=== PATIENT | female | born 1975 ===

== ENCOUNTER 2020-12-08 05:28 | Emergency (ER) | payer BC, OTHER ==
[2020-12-08] MEDS ORDERED: FAMOTIDINE 20MG/2ML IV (PEPCID) IV STA (05:54)
[2020-12-08] MEDS ORDERED: ANTACID SUSP 30 ML UDC (MYLANTA) PO ONE (06:00)
[2020-12-08] MEDS ORDERED: ONDANSETRON 4 MG/2 ML (SDV) Z0FRAN IVP ONE ×2 (06:00→11:15)
[2020-12-08] MEDS ORDERED: LACTATED RINGERS 1,000 ML IV ONE (06:00)
[2020-12-08] MEDS ORDERED: LIDOCAINE 2% VISCOUS 15 ML UDC PO ONE (06:00)
[2020-12-08 06:01] LABS: BASOPHILS % (AUTO) 0 % (0-10); EOSINOPHILS # (AUTO) 0.2 10^3/uL (0.0-0.3); EOSINOPHILS % (AUTO) 1 % (0-10); HEMATOCRIT 40 % (35-52); HEMOGLOBIN 14.7 g/dL (11.5-16.0); LYMPHOCYTES % (AUTO) 14 % (12-44); MEAN CORPUSCULAR HEMOGLOBIN 31 pg (25-34); MEAN CORPUSCULAR HGB CONC 36 g/dL (32-36); MEAN CORPUSCULAR VOLUME 85 fL (80-99); MEAN PLATELET VOLUME 11.3 fL (9.0-12.2); MONOCYTES # (AUTO) 0.5 10^3/uL (0.0-1.0); MONOCYTES % (AUTO) 4 % (0-12); NEUTROPHILS # (AUTO) 11.8 10^3/uL (1.8-7.8); NEUTROPHILS % (AUTO) 81 % (42-75); PLATELET COUNT 254 10^3/uL (130-400); WHITE BLOOD COUNT 14.6 10^3/uL (4.3-11.0)
--- NOTE | 2020-12-08 06:01 | ED Abdominal Pain ---
General Chief Complaint: Abdominal/GI Problems Stated Complaint: UPPER ABD PAIN Source of Information: Patient Exam Limitations: No Limitations (RASHARD LEPE) History of Present Illness Date Seen by Provider: Dec 08, 2020 Time Seen by Provider: 05:40 Initial Comments Patient to the ER by private conveyance with her significant other and chief complaint epigastric abdominal pain has been going on off and on for the past couple months. She says this last episode started last night shortly after eating dinner and has waxed and waned. She rates it as a 10 out of 10 presently . Not worse with movement. She is having nausea but no vomiting. No diarrhea or constipation. No fevers chills or sick contacts. No history of abdominal surgeries or EGD/colonoscopy. She went to [facility] a month ago and they gave her a medicine but she is not sure what it was or what it was for. She did take it today and states that it did not help her at all. She has not had any work-up including labs, ultrasound etc. (RASHARD LEPE) Allergies and Home Medications Allergies Coded Allergies: No Known Drug Allergies (Unverified , 12/08/20) Patient Home Medication List Home Medication List Reviewed: Yes (RASHARD LEPE) Review of Systems Review of Systems Constitutional: No chills, No fever EENTM: No Blurred Vision, No Double Vision Respiratory: Denies Cough, Denies Orthopnea Cardiovascular: Denies Chest Pain, Denies Edema Gastrointestinal: Abdominal Pain, Nausea, Vomiting Genitourinary: Denies Burning, Denies Discharge, Denies Drainage Musculoskeletal: No back pain, No joint pain Psychiatric/Neurological: Denies Anxiety, Denies Depressed (RASHARD LEPE) All Other Systems Reviewed Negative Unless Noted: Yes (RASHARD LEPE) Past Jtjfpch-Bileyk-Qmankd Hx Patient Social History Tobacco Use?: No Use of E-Cig and/or Vaping dev: No Substance use?: No Alcohol Use?: No (RASHARD LEPE) Physical Exam Vital Signs Vital Signs - First Documented 12/08/20 05:44 Temp 36.0 Pulse 68 Resp 16 B/P (MAP) 136/77 (96) Pulse Ox 100 O2 Delivery Room Air (MAYRA JOSE MD) Vital Signs Capillary Refill : (RASHARD LEPE) Height/Weight/BMI Height: '" Weight: lbs. oz. kg; BMI Method: General Appearance: WD/WN, mild distress HEENT: PERRL/EOMI, pharynx normal Neck: full range of motion, normal inspection Respiratory: lungs clear, normal breath sounds, no respiratory distress, no accessory muscle use Cardiovascular: normal peripheral pulses, regular rate, rhythm Peripheral Pulses: 2+ Radial Pulses (R), 2+ Radial Pulses (L) Gastrointestinal: normal bowel sounds, soft, tenderness (Epigastric and periumb ilical this), other (Negative for Newman's) Extremities: normal inspection, no pedal edema, normal capillary refill Back: normal inspection, no vertebral tenderness Neurologic/Psychiatric: alert, normal mood/affect, oriented x 3 Skin: normal color, warm/dry (SHERLEY,RASHARD J) Progress/Results/Core Measures Results/Orders Lab Results Laboratory Tests Test 12/08/20 05:54 12/08/20 06:00 12/08/20 10:08 Range/Units White Blood Count 14.6 H 4.3-11.0 10^3/uL Red Blood Count 4.77 3.80-5.11 10^6/uL Hemoglobin 14.7 11.5-16.0 g/dL Hematocrit 40 35-52 % Mean Corpuscular Volume 85 80-99 fL Mean Corpuscular Hemoglobin 31 25-34 pg Mean Corpuscular Hemoglobin Concent 36 32-36 g/dL Red Cell Distribution Width 12.5 10.0-14.5 % Platelet Count 254 130-400 10^3/uL Mean Platelet Volume 11.3 9.0-12.2 fL Immature Granulocyte % (Auto) 1 % Neutrophils (%) (Auto) 81 H 42-75 % Lymphocytes (%) (Auto) 14 12-44 % Monocytes (%) (Auto) 4 0-12 % Eosinophils (%) (Auto) 1 0-10 % Basophils (%) (Auto) 0 0-10 % Neutrophils # (Auto) 11.8 H 1.8-7.8 10^3/uL Lymphocytes # (Auto) 2.0 1.0-4.0 10^3/uL Monocytes # (Auto) 0.5 0.0-1.0 10^3/uL Eosinophils # (Auto) 0.2 0.0-0.3 10^3/uL Basophils # (Auto) 0.0 0.0-0.1 10^3/uL Immature Granulocyte # (Auto) 0.1 0.0-0.1 10^3/uL Neutrophils % (Manual) 83 % Lymphocytes % (Manual) 13 % Monocytes % (Manual) 4 % Sodium Level 133 L 135-145 MMOL/L Potassium Level 3.7 3.6-5.0 MMOL/L Chloride Level 102 98-107 MMOL/L Carbon Dioxide Level 20 L 21-32 MMOL/L Anion Gap 11 5-14 MMOL/L Blood Urea Nitrogen 15 7-18 MG/DL Creatinine 0.83 0.60-1.30 MG/DL Estimat Glomerular Filtration Rate 75 BUN/Creatinine Ratio 18 Glucose Level 249 H 70-105 MG/DL Calcium Level 9.6 8.5-10.1 MG/DL Corrected Calcium 9.5 8.5-10.1 MG/DL Total Bilirubin 3.1 H 0.1-1.0 MG/DL Aspartate Amino Transf (AST/SGOT) 298 H 5-34 U/L Alanine Aminotransferase (ALT/SGPT) 281 H 0-55 U/L Alkaline Phosphatase 412 H 40-136 U/L C-Reactive Protein High Sensitivity 0.41 0.00-0.50 MG/DL Total Protein 8.4 H 6.4-8.2 GM/DL Albumin 4.1 3.2-4.5 GM/DL Lipase 20994 H 8-78 U/L Urine Color DARK YELLOW Urine Clarity SL CLOUDY Urine pH 7.0 5-9 Urine Specific [place] 1.020 1.016-1.022 Urine Protein TRACE H NEGATIVE Urine Glucose (UA) 2+ H NEGATIVE Urine Ketones 3+ H NEGATIVE Urine Nitrite NEGATIVE NEGATIVE Urine Bilirubin 1+ H NEGATIVE Urine Urobilinogen >=8.0 < = 1.0 MG/DL Urine Leukocyte Esterase NEGATIVE NEGATIVE Urine RBC (Auto) NEGATIVE NEGATIVE Urine RBC 0-2 /HPF Urine WBC 0-2 /HPF Urine Squamous Epithelial Cells 2-5 /HPF Urine Crystals NONE /LPF Urine Bacteria TRACE /HPF Urine Casts NONE /LPF Urine Mucus SMALL H /LPF Urine Culture Indicated NO SARS-CoV-2 RNA (RT-PCR) Not Detected Not Detecte (MAYRA JOSE MD) My Orders Orders - MAYRA JOSE MD Fentanyl Inj (Sublimaze Injection) (12/08/20 06:09) Pantoprazole Injection (Protonix Injecti (12/08/20 06:15) Fentanyl Inj (Sublimaze Injection) (12/08/20 06:11) Ct Abdomen/Pelvis W (12/08/20 07:22) Lactated Ringers (Lr 1000 Ml Iv Solution (12/08/20 07:23) Promethazine Injection (Phenergan Injec (12/08/20 07:32) Promethazine Injection (Phenergan Injec (12/08/20 07:32) Iohexol Injection (Omnipaque 350 Mg/Ml 1 (12/08/20 07:45) Received Contrast (Hold Metformin- Contr (12/08/20 07:45) Sodium Chloride Flush (Catheter Flush Sy (12/08/20 07:45) Ns (Ivpb) (Sodium Chloride 0.9% Ivpb Bag (12/08/20 07:45) Us Gallbladder 88088 (12/08/20 08:00) Fentanyl Inj (Sublimaze Injection) (12/08/20 08:30) Fentanyl Inj (Sublimaze Injection) (12/08/20 08:34) Covid 19 Inhouse Test (12/08/20 09:41) Promethazine Injection (Phenergan Injec (12/08/20 09:46) Fentanyl Inj (Sublimaze Injection) (12/08/20 09:46) Piperacillin Sodium/Tazobactam (Zosyn Vi (12/08/20 10:15) Hydromorphone Injection (Dilaudid Inject (12/08/20 11:15) Ondansetron Injection (Zofran Injectio (12/08/20 11:15) (MAYRA JOSE MD) Medications Given in ED Current Medications Medications Dose Ordered Sig/Soila Route Start Time Stop Time Status Last Admin Dose Admin Hydromorphone HCl 0.5 mg ONCE ONCE IV 12/08/20 11:15 12/08/20 11:16 DC 12/08/20 11:16 0.5 MG Iohexol 100 ml ONCE ONCE IV 12/08/20 07:45 12/08/20 07:46 DC 12/08/20 07:47 100 ML Lactated Ringer's 1,000 ml @ 0 mls/hr Q0M ONCE IV 12/08/20 06:00 12/08/20 06:01 DC 12/08/20 06:17 999 MLS/HR Ondansetron HCl 4 mg ONCE ONCE IVP 12/08/20 11:15 12/08/20 11:16 DC 12/08/20 11:16 4 MG Ondansetron HCl 8 mg ONCE ONCE IVP 12/08/20 06:00 12/08/20 06:01 DC 12/08/20 06:17 8 MG Pantoprazole 40 mg ONCE ONCE IV 12/08/20 06:15 12/08/20 06:16 DC 12/08/20 06:17 40 MG Piperacillin Sod/ Tazobactam Sod 4.5 gm/Sodium Chloride 100 ml @ 200 mls/hr ONCE ONCE IV 12/08/20 10:15 12/08/20 10:44 DC 12/08/20 11:16 200 MLS/HR Sodium Chloride 10 ml NEEDED PRN IV 12/08/20 07:45 12/08/20 07:47 10 ML Sodium Chloride 100 ml ONCE ONCE IV 12/08/20 07:45 12/08/20 07:46 DC 12/08/20 07:47 80 ML (MAYRA JOSE MD) Vital Signs/I&O 12/08/20 05:44 Temp 36.0 Pulse 68 Resp 16 B/P (MAP) 136/77 (96) Pulse Ox 100 O2 Delivery Room Air (MAYRA JOSE MD) Progress Progress Note : Time: 06:04 Progress Note Patient is in a fair amount of abdominal distress. Differential includes gastritis, pancreatitis, gastroenteritis, gallbladder or biliary duct disease. We will get some labs to evaluate this as well as urinalysis, bedside and give her a liter of fluids, Zofran. We did want to attempt a GI cocktail with some Pepcid IV however the patient still having some active retching so we will turn her over to [facility] and he has an excellent plan to proceed with the treatment of her symptoms and working up of her underlying pathology. (RASHARD LEPE) Progress Note : Progress Note 0600: Assumed care of the patient pending studies. Protonix 40 mg and fentanyl 50 mcg IV ordered. Monitor patient. 0730: CT complete. Pending final read. 0845: Repeat pain noted. We have initiated repeat LR 1 L bolus and given 50 mcg of fentanyl IV. CT concerning for pancreatitis as well as gallstones. Common bile duct is quite dilated. I have discussed the case with Dr. Dubose. He is recommending transfer as patient needs ERCP and this is not a procedure we can do here. This was discussed with patient and family who agree. Ultrasound was ordered and is pending but primary read shows multiple gallstones. Unable to evaluate common bile duct. We will initiate transfer proceedings. 0935: I have spoken with [facility] in [facility] and they are on diversion. I have spoken with [facility] and [facility] and they are on diversion as well. We will initiate transfer through [facility] to find facility that has ERCP capability. Currently she is comfortable. Monitor patient. 1008: Phenergan 12.5 mg IV for persistent vomiting. Repeat fentanyl 50 mcg IV. We are pursuing transfer. She was updated that it will be outside of the local area and she agrees. Monitor patient. 1055: We have discussed the case with [facility] in [place] and they have no beds available. We are currently in conversation with the hospital in [place] that seems promising. I did verify that the patient's last p.o. intake was last night around 8 PM. She is not vomiting currently but is starting to have more pain. We will switch to a longer acting pain medicine and give Dilaudid 0.5 mg IV. Monitor patient. 1205: Patient has apparently been accepted at [facility] in [place], [place]. They do not have beds available quite yet but will call us back as soon as bed is available. I did give patient update and she is doing okay currently. Patient will go by EMS when bed is available. 1440: We do have a bed at [facility] in [place]. is accepting. I have discussed the case with the shift captain and we will call EMS for transfer. Patient is currently comfortable. She will have IV fluids running and may need pain and nausea medicine for route. ALS transfer. (MAYRA JOSE MD) Diagnostic Imaging Diagonstic Imaging: CT Plain Films/CT/US/NM/MRI: abdomen, pelvis Comments [facility]. [place], [place] NAME: SUMANTH CALVILLO [facility] REC#: [id number] PT STATUS: REG ER : 1975 PHYSICIAN: MAYRA JOSE MD ADMIT DATE: 12/08/20/ER Draft Date of Exam:12/08/20 CT ABDOMEN/PELVIS W EXAMINATION: CT abdomen and pelvis with intravenous contrast. TECHNIQUE: Multiple contiguous axial images were obtained through the abdomen and pelvis after the uneventful administration of intravenous contrast. All CT scans use one or more of the following dose optimizing techniques: automated exposure control, MA and/or KvP adjustment based on patient size and exam type or iterative reconstruction. HISTORY: upper abd pain, elevated lipase COMPARISON: None available. FINDINGS: Lung bases: The lung bases are clear. Solid organs: The liver is normal without focal lesion. Multiple layering hyperdense stones within the gallbladder. There is mild biliary ductal dilatation. There is a mild inflammatory stranding within the peripancreatic fat. Spleen is normal. Adrenal glands are normal. The kidneys are normal without hydronephrosis. Bowel: The stomach and small bowel are normal without obstruction. The colon and appendix are normal. Peritoneum: No loculated fluid collection or intra-abdominal free air. No suspicious lymphadenopathy. Vasculature: Normal without aneurysm. Musculoskeletal: No suspicious osseous lesion or compression fracture. Pelvis: The uterus is unremarkable. There is a 5.8 cm left adnexal cystic lesion. The urinary bladder is normal. IMPRESSION: 1. Peripancreatic inflammatory stranding which can be seen with acute pancreatitis. Recommend correlation with laboratory values. No peripancreatic fluid collection. 2. Cholelithiasis with biliary ductal dilatation. This could be further evaluated with MRCP. Dictated on workstation # [id number] Dict: 12/08/20 0753 Trans: 12/08/20 0801 [facility] [id number] Interpreted by: KIM CHAVARRIA DO Electronically signed by: [facility]: Ultrasound Plain Films/CT/US/NM/MRI: abdomen Comments [facility] [place], [place] NAME: SUMANTH CALVILLO [facility] REC#: [id number] PT STATUS: REG ER : 1975 PHYSICIAN: MAYRA JOSE MD ADMIT DATE: 12/08/20/ER Signed Date of Exam:12/08/20 US GALLBLADDER [id number] EXAMINATION: US Abdomen limited. TECHNIQUE: Multiple real-time grayscale images were obtained over the right upper quadrant in various projections. HISTORY: upper abd pain COMPARISON: CT abdomen and pelvis 12/08/2020 FINDINGS: Pancreas: The visualized portions of the pancreas are normal. Liver: The liver is normal in echogenicity and contour. No focal lesions are seen. The portal vein is patent with hepatopetal flow. Gallbladder and biliary tree: Gallbladder is contracted with multiple shadowing stones. There is mild gallbladder wall thickening measuring 0.4 cm. No sonographic Newman's sign or pericholecystic fluid is seen. There is no intrahepatic biliary ductal dilation. The common duct is nonvisualized secondary to bowel gas. Right kidney: The right kidney is normal without hydronephrosis. Aorta and IVC: The aorta is nonvisualized secondary to overlying bowel gas. The visualized IVC is normal. Fluid: No ascites is seen. IMPRESSION: 1. Cholelithiasis with mild gallbladder wall thickening. Recommend correlation with any other signs or symptoms of acute cholecystitis. Dictated by: Dictated on workstation # [id number] Dict: 12/08/20839 Trans: 12/08/2045 [id number] Interpreted by: KIM CHAVARRIA DO Electronically signed by: KIM CHAVARRIA DO 12/08/2045 (MAYRA JOSE MD) Departure Impression Primary Impression: Acute gallstone pancreatitis Disposition: XFER SHT-TRM HOSP Condition: Stable Transfer Transfer Reason: Exceeds level of care Time Spoke to Accepting Phy: 12:05 Transfer Facility: [facility], Method of Transfer: EMS (MAYRA JOSE MD) Departure-Patient Inst. Referrals: NO,LOCAL PHYSICIAN (PCP/Family) Primary Care Physician RASHARD LEPE Dec 08, 2020 06:01 MAYRA JOSE MD Dec 08, 2020 08:22
[2020-12-08] MEDS ORDERED: PANTOPRAZOLE 40 MG (PROTONIX) VIAL ONE (06:07)
[2020-12-08 06:08] LABS: BILIRUBIN,URINE 1+ (NEGATIVE); CLARITY,URINE SL CLOUDY; COLOR,URINE DARK YELLOW; GLUCOSE, URINE (UA) 2+ (NEGATIVE); KETONES,URINE 3+ (NEGATIVE); LEUKOCYTE ESTERASE ,URINE NEGATIVE (NEGATIVE); NITRITE,URINE NEGATIVE (NEGATIVE); PROTEIN,URINE TRACE (NEGATIVE)
[2020-12-08] MEDS ORDERED: fentaNYL INJ 100 MCG/2 ML AMP IVP STA ×3 (06:09→09:46)
[2020-12-08 06:10] LABS: ALBUMIN 4.1 GM/DL (3.2-4.5); POTASSIUM 3.7 MMOL/L (3.6-5.0)
[2020-12-08 06:11] LABS: CALCIUM 9.6 MG/DL (8.5-10.1)
[2020-12-08] MEDS ORDERED: fentaNYL INJ 100 MCG/2 ML AMP ONE ×2 (06:11→08:34)
[2020-12-08 06:12] LABS: TOTAL PROTEIN 8.4 GM/DL (6.4-8.2)
[2020-12-08 06:14] LABS: BILIRUBIN,TOTAL 3.1 MG/DL (0.1-1.0)
[2020-12-08] MEDS ORDERED: PANTOPRAZOLE 40 MG (PROTONIX) VIAL IV ONE (06:15)
[2020-12-08 06:16] LABS: CREATININE SERUM 0.83 MG/DL (0.60-1.30)
[2020-12-08 06:19] LABS: BACTERIA,URINE TRACE /HPF; RBC,URINE 0-2 /HPF; WBC,URINE 0-2 /HPF
[2020-12-08 06:24] LABS: LYMPHOCYTES % (MANUAL) 13 %; MONOCYTES % (MANUAL) 4 %; NEUTROPHILS % (MANUAL) 83 %
[2020-12-08] MEDS ORDERED: LACTATED RINGERS 1,000 ML IV STA (07:23)
[2020-12-08] MEDS ORDERED: PROMETHAZINE INJ 25 MG/ML (PHENERGAN) AMP IVP STA ×2 (07:32→09:46)
[2020-12-08] MEDS ORDERED: PROMETHAZINE INJ 25 MG/ML (PHENERGAN) AMP ONE (07:32)
[2020-12-08] MEDS ORDERED: CATHETER FLUSH 10 ML SYR IV PRN (07:45)
[2020-12-08] MEDS ORDERED: IOHEXOL 350 MG/ML 100 ML (OMNIPAQUE 350) VIAL IV ONE (07:45)
[2020-12-08] MEDS ORDERED: HOLD METFORMIN - RECEIVED CONTRAST 20 ML VIAL IV SCH (07:45)
[2020-12-08] MEDS ORDERED: NS 100 ML (IVPB) BAG IV ONE (07:45)
--- NOTE | 2020-12-08 08:02 | Diagnostic Imaging Report ---
EXAMINATION: CT abdomen and pelvis with intravenous contrast. TECHNIQUE: Multiple contiguous axial images were obtained through the abdomen and pelvis after the uneventful administration of intravenous contrast. All CT scans use one or more of the following dose optimizing techniques: automated exposure control, MA and/or KvP adjustment based on patient size and exam type or iterative reconstruction. HISTORY: upper abd pain, elevated lipase COMPARISON: None available. FINDINGS: Lung bases: The lung bases are clear. Solid organs: The liver is normal without focal lesion. Multiple layering hyperdense stones within the gallbladder. There is mild biliary ductal dilatation. There is a mild inflammatory stranding within the peripancreatic fat. Spleen is normal. Adrenal glands are normal. The kidneys are normal without hydronephrosis. Bowel: The stomach and small bowel are normal without obstruction. The colon and appendix are normal. Peritoneum: No loculated fluid collection or intra-abdominal free air. No suspicious lymphadenopathy. Vasculature: Normal without aneurysm. Musculoskeletal: No suspicious osseous lesion or compression fracture. Pelvis: The uterus is unremarkable. There is a 5.8 cm left adnexal cystic lesion. The urinary bladder is normal. IMPRESSION: 1. Peripancreatic inflammatory stranding which can be seen with acute pancreatitis. Recommend correlation with laboratory values. No peripancreatic fluid collection. 2. Cholelithiasis with biliary ductal dilatation. This could be further evaluated with MRCP. Dictated by: Dictated on workstation # [id number]
--- NOTE | 2020-12-08 08:47 | Diagnostic Imaging Report ---
EXAMINATION: US Abdomen limited. TECHNIQUE: Multiple real-time grayscale images were obtained over the right upper quadrant in various projections. HISTORY: upper abd pain COMPARISON: CT abdomen and pelvis 12/08/2020 FINDINGS: Pancreas: The visualized portions of the pancreas are normal. Liver: The liver is normal in echogenicity and contour. No focal lesions are seen. The portal vein is patent with hepatopetal flow. Gallbladder and biliary tree: Gallbladder is contracted with multiple shadowing stones. There is mild gallbladder wall thickening measuring 0.4 cm. No sonographic Newman's sign or pericholecystic fluid is seen. There is no intrahepatic biliary ductal dilation. The common duct is nonvisualized secondary to bowel gas. Right kidney: The right kidney is normal without hydronephrosis. Aorta and IVC: The aorta is nonvisualized secondary to overlying bowel gas. The visualized IVC is normal. Fluid: No ascites is seen. IMPRESSION: 1. Cholelithiasis with mild gallbladder wall thickening. Recommend correlation with any other signs or symptoms of acute cholecystitis. Dictated by: Dictated on workstation # [id number]
[2020-12-08] MEDS ORDERED: PIPERACILLIN SODIUM/TAZOBACTAM 4.5 GM in NS (IVPB) 100 ML IV ONE (10:15)
[2020-12-08] MEDS ORDERED: HYDROmorphone 2 MG/ML VIAL (DILAUDID) IV ONE ×2 (11:15→15:00)
[2020-12-08] MEDS ORDERED: NS IV 1000 ML 1,000 ML IV ONE (14:45)
[2020-12-08 16:04] VITALS: BP 138/82
== END 2020-12-08 16:04 | disposition short-term general hospital (02) ==
LOC: ER 05:34
DX: K85.10 Biliary acute pancreatitis without necrosis or infection (principal); Z20.822 Contact with and (suspected) exposure to COVID-19
CPT/HCPCS: 36415; 74177; 76705; 80053; 81000; 83690; 84703; 85007; 85027; 86141; 87636; 96361; 96365; 96375; 96376